=== PATIENT | male | born 1975 | race Hispanic/Latino ===

== ENCOUNTER 2017-12-26 07:25 | Emergency (ER) | payer BC ==
[~2017-12-26] VITALS: Ht 185.4 cm; Wt 194.6 kg
[2017-12-26] MEDS ORDERED: HYDROCODONE/APAP 10MG-325MG TAB PO ONE (08:00)
== END 2017-12-26 09:35 | disposition home or self-care (01) ==
LOC: FSED 07:25
DX: M54.2 Cervicalgia (principal); S16.1XXA Strain of muscle, fascia and tendon at neck level, initial encounter; M50.80 Other cervical disc disorders, unspecified cervical region
CPT/HCPCS: 72040; 93005; 99283

== ENCOUNTER → 2020-02-17 | Day surgery (SDC) | payer OTHER ==
[2020-02-14 12:08] LABS: BASOPHILS % 0.4 % (0.0-1.0); EOSINOPHILS # (AUTO) 0.1 (0.0-0.4); EOSINOPHILS % 1.9 % (0.0-6.0); HEMATOCRIT 39.8 % (38.2-49.6); HEMOGLOBIN 12.7 g/dL (14.0-18.0); LYMPHOCYTES # (AUTO) 2.4 (1.0-3.2); LYMPHOCYTES % 51.1 % (18.0-39.1); MEAN CORPUSCULAR HEMOGLOBIN 28.4 pg (28-32); MEAN CORPUSCULAR HGB CONC 31.9 g/dL (31-35); MONOCYTES # (AUTO) 0.4 (0.2-0.8); NEUTROPHILS # (AUTO) 1.8 (2.1-6.9); NEUTROPHILS % 38.6 % (38.7-80.0); PLATELET COUNT 186 x10e3/uL (140-360); RED BLOOD COUNT 4.47 x10e6/uL (4.3-5.7); RED CELL DISTRIBUTION WIDTH 13.9 % (11.7-14.4)
[2020-02-14 12:43] LABS: ALANINE AMINOTRANSFERASE 11 IU/L (0-55); ALBUMIN 3.9 g/dL (3.5-5.0); ALBUMIN/GLOBULIN RATIO 1.3 (0.8-2.0); ALKALINE PHOSPHATASE 53 IU/L (40-150); ANION GAP 14.5 mmol/L (8-16); BLOOD UREA NITROGEN 13 mg/dL (7-26); BUN/CREATININE RATIO 16 (6-25); CALCIUM 9.3 mg/dL (8.4-10.2); CARBON DIOXIDE 27 mmol/L (22-29); CHLORIDE 106 mmol/L (98-107); CREATININE, SERUM 0.79 mg/dL (0.72-1.25); EST GLOMERULAR FILTRATION RATE > 60 ML/MIN (60-); GLUCOSE 84 mg/dL (74-118); POTASSIUM 4.5 mmol/L (3.5-5.1); SODIUM 143 mmol/L (136-145)
[~2020-02-17] MED LIST: BUPIVACAINE 0.25%/EPI 30ML SDV INJ ONE; DICLOXACILLIN250 MG PO; FENTANYL CITRATE/PF 100MCG/2 ML INJ ONE; FLECTOR1 EACH PO; LIDOCAINE HCL 1% LOCAL INJ 20 ML VIAL ONE; LIDOCAINE HCL 2% 30 ML TUBE ONE; LIDOCAINE HCL 2% LOCAL INJ 5 ML SDV VIAL INJ ONE; METFORMIN HCL500 MG PO; MIDAZOLAM HCL 2 MG/2 ML VIAL ONE; NEOMYCIN/POLYMYX/BACITR OINT 0.9 GM PKT ONE; PROPOFOL IV EMULSION 10 MG/ML 20 ML VIAL ONE
[2020-02-17 13:50] VITALS: BP 107/64
--- NOTE | 2020-02-17 20:40 | Operative Report ---
DATE OF PROCEDURE: 02/17/2020 SURGEON: Constantin Cloud MD PREOPERATIVE DIAGNOSIS: Perianal tumor. POSTOPERATIVE DIAGNOSIS: Perianal tumor. OPERATION PERFORMED: Resection of perianal tumor. LAW RESEARCHER: None. ANESTHESIA: Local 1% xylocaine and 0.25% Marcaine and MAC. COMPLICATIONS: None. ESTIMATED BLOOD LOSS: Minimal. DESCRIPTION OF PROCEDURE: With the patient lying in bed in the lateral position under good IV sedation, the perineum and perianal area were prepped with Betadine solution and draped in the usual manner. The area surrounding the tumor, which was located at the superior aspect of the anal area was infiltrated with 0.25% Marcaine and 1% lidocaine with epinephrine. After this was done, using the knife, the lesion was slowly and carefully excised all the way down to the perianal sphincter muscle and was totally and completely removed and sent for pathological examination. After this was done, hemostasis was then ascertained. The deeper perianal muscular layers were then reapproximated with interrupted sutures of 3-0 chromic and the skin was closed with interrupted sutures of 3-0 chromic. Dressing was applied. Sponge, lap, and needle count was correct. The patient tolerated the procedure well and returned to the recovery room in stable condition. MD OXANA Snider/MODL /[id number]
== END | disposition home or self-care (01) ==
LOC: OR 10:00
PROVIDERS: ATTEND Surgery
DX: D49.2 Neoplasm of unspecified behavior of bone, soft tissue, and skin (principal); E11.9 Type 2 diabetes mellitus without complications; K21.9 Gastro-esophageal reflux disease without esophagitis; Z01.810 Encounter for preprocedural cardiovascular examination; Z01.812 Encounter for preprocedural laboratory examination; Z11.59 Encounter for screening for other viral diseases; Z79.84 Long term (current) use of oral hypoglycemic drugs
CPT/HCPCS: 36415 ×2; 46922; 80053; 82948; 85025; 87635; 88305; 93005; J2001 ×2; J2250; J2704; J3010; 88304

== ENCOUNTER → 2020-05-11 | Day surgery (SDC) | payer OTHER ==
[2020-05-07 16:47] LABS: BASOPHILS % 0.3 % (0.0-1.0); EOSINOPHILS # (AUTO) 0.1 (0.0-0.4); EOSINOPHILS % 1.5 % (0.0-6.0); HEMATOCRIT 39.4 % (38.2-49.6); HEMOGLOBIN 12.5 g/dL (14.0-18.0); MEAN CORPUSCULAR HEMOGLOBIN 27.9 pg (28-32); MEAN CORPUSCULAR HGB CONC 31.7 g/dL (31-35); MEAN CORPUSCULAR VOLUME 87.9 fL (81-99); MONOCYTES # (AUTO) 0.4 (0.2-0.8); MONOCYTES % 6.4 % (4.4-11.3); NEUTROPHILS % 45.6 % (38.7-80.0); PLATELET COUNT 179 x10e3/uL (140-360); RED BLOOD COUNT 4.48 x10e6/uL (4.3-5.7); RED CELL DISTRIBUTION WIDTH 13.6 % (11.7-14.4)
[2020-05-07 17:07] LABS: ALANINE AMINOTRANSFERASE 13 IU/L (0-55); ALBUMIN/GLOBULIN RATIO 1.3 (0.8-2.0); ALKALINE PHOSPHATASE 51 IU/L (40-150); ANION GAP 15.7 mmol/L (8-16); BLOOD UREA NITROGEN 13 mg/dL (7-26); BUN/CREATININE RATIO 19 (6-25); CALCIUM 8.5 mg/dL (8.4-10.2); CARBON DIOXIDE 24 mmol/L (22-29); CHLORIDE 104 mmol/L (98-107); EST GLOMERULAR FILTRATION RATE > 60 ML/MIN (60-); GLUCOSE 73 mg/dL (74-118); POTASSIUM 3.7 mmol/L (3.5-5.1); SODIUM 140 mmol/L (136-145)
[~2020-05-11] MED LIST changes: -BUPIVACAINE 0.25%/EPI 30ML SDV INJ ONE; +BUPIVACAINE 0.5%/EPI 30 ML SDV INJ ONE; +DEXAMETHASONE SOD PHOS INJ 4 MG/ML VIAL ONE; +GLYCOPYRROLATE INJ 0.2 MG/ML VIAL ONE; +KETOROLAC TROMETHAMINE 30 MG/ML VIAL ONE; -LIDOCAINE HCL 1% LOCAL INJ 20 ML VIAL ONE; -LIDOCAINE HCL 2% 30 ML TUBE ONE; +METOCLOPRAMIDE HCL 10 MG/2ML VIAL ONE; +MORPHINE SULFATE INJ 10 MG/ML ONE; -NEOMYCIN/POLYMYX/BACITR OINT 0.9 GM PKT ONE; +NEOSTIGMINE 1 MG/ML 10ML VIAL ONE; +ONDANSETRON HCL INJ 2MG/ML 2ML 2 MG/ML VIAL ONE; +ROCURONIUM BROMIDE 10 MG/ML 5ML VIAL IV ONE; +SEVOFLURANE INHAL SOLN 250 ML PEN BTL ONE
--- NOTE | 2020-05-11 07:20 | NUR ---
SPIRITUAL CARE - Pre-Surgery Assessment: Pt in bed. Pt reported supportive attention from family and friends. Intervention: Racing Secretary And Handicapper provided pastoral presence, hospitality, and sympathetic listening. Acquainted pt with availability of mold yard supervisor while hospitalized. Outcome: Pt expressed appreciation for visit. No need for follow up indicated at this time. RAGINI Mcfarland Spiritual Care Department O: [phone]
--- NOTE | 2020-05-11 11:13 | Operative Report ---
DATE OF PROCEDURE: 05/11/2020 SURGEON: Constantin Cloud MD PREOPERATIVE DIAGNOSIS: Cholecystitis and cholelithiasis. POSTOPERATIVE DIAGNOSIS: Cholecystitis and cholelithiasis. OPERATION PERFORMED: Laparoscopic cholecystectomy. COMMISSIONS MANAGER: MATT Dove. ANESTHESIA: General. COMPLICATIONS: None. ESTIMATED BLOOD LOSS: Minimal. DESCRIPTION OF PROCEDURE: With the patient lying in bed in the supine position under good general endotracheal anesthesia, the abdomen was prepped with Betadine solution and draped in the usual manner. A Veress needle was introduced into the umbilicus and pneumoperitoneum was established. An 11 mm trocar was placed into the umbilicus and a 10 mm video laparoscope was placed into the intra-abdominal cavity. Under direct vision, three 5 mm trocars were placed in the right subcostal region and extra 5 mm trocar was placed in the left upper abdomen to retract the colon. Laparoscopy at this point revealed that the patient's gallbladder could not be seen. He was totally covered up with adhesions from the omentum and transverse colon. The rest of the abdominal exploration showed evidence of a previous gastric sleeve. The adhesions to the right lobe of the liver were then slowly and carefully taken down and the colon was then retracted downward and we were able then to separate the gallbladder from the colon. The gallbladder was totally calcified with either one large stone or multiple large stones, was contracted with a lot of adhesions all the way around it showing signs of chronic multiple episodes of cholecystitis. Once all the adhesions were cleared, the peritoneum overlying the neck of the gallbladder was then opened and the cystic duct was identified. The cystic duct was then followed to its junction with the common duct. The cystic duct was then circumferentially dissected away from the common duct, doubly clipped and divided. The cystic artery had an anterior and a posterior branch, both of these were individually clipped and divided. The gallbladder was then slowly and carefully taken off the liver bed using the cautery scissors and perfect hemostasis was ascertained. The gallbladder was then placed in a pouch and removed through the umbilical incision after enlarging the incision to allow for passage of the large calcified stones. Video laparoscopy was then again carried out. The liver bed was found to be perfectly dry. All the excess fluid was aspirated. The pneumoperitoneum was evacuated and all the trocars were removed under direct vision. The midline fascia at the umbilicus was then closed with 2 [id number] of 0 Vicryl. All layers were infiltrated on the way out with solution of 0.25% Marcaine. Subcutaneous tissue was approximated with 3-0 Vicryl and the skin was closed with subcuticular 5-0 Vicryl. Benzoin, Steri-Strips and Band-Aids were applied. The sponge, lap, and needle count was correct. The patient tolerated the procedure well and returned to the recovery room in stable condition. MD OXANA Snider/GISSELLE /[id number]
[2020-05-11 11:50] VITALS: BP 146/86
== END | disposition home or self-care (01) ==
LOC: OR 06:15
PROVIDERS: ATTEND Surgery
DX: K80.10 Calculus of gallbladder with chronic cholecystitis without obstruction (principal); K82.8 Other specified diseases of gallbladder; E11.9 Type 2 diabetes mellitus without complications; R00.1 Bradycardia, unspecified; I44.0 Atrioventricular block, first degree; Z01.810 Encounter for preprocedural cardiovascular examination; Z01.812 Encounter for preprocedural laboratory examination; Z11.59 Encounter for screening for other viral diseases; Z79.84 Long term (current) use of oral hypoglycemic drugs
CPT/HCPCS: 36415 ×2; 47562; 80053; 82948; 85025; 88304; 93005; J1100; J1885; J2001; J2250; J2270; J2405; J2704; J2710; J2765; J3010; U0002